=== PATIENT | male | born 1985 | race Caucasian/White ===

== ENCOUNTER 2021-12-27 17:24 | Emergency (ER) | payer OTHER ==
[~2021-12-27] VITALS: Ht 180.3 cm; Wt 81.6 kg
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
--- NOTE | 2021-12-27 17:35 | NUR ---
DR ORTIZ AT BEDSIDE FOR EVAL
[2021-12-27] MEDS ORDERED: FLUORESCEIN SODIUM OPHTH 1 EA STRIP ONE (17:39)
[2021-12-27] MEDS ORDERED: OFLO5DRO6 RIGHTEYE (17:49)
[2021-12-27 18:02] VITALS: BP 121/65
--- NOTE | 2021-12-27 18:02 | NUR ---
Patient discharged to home in stable condition. Written and verbal after care instructions given. Patient verbalizes understanding of instruction.
== END 2021-12-27 18:03 | disposition home or self-care (01) ==
LOC: ER 17:30
DX: T15.01XA Foreign body in cornea, right eye, initial encounter (principal); Z88.0 Allergy status to penicillin; Z60.2 Problems related to living alone; W22.8XXA Striking against or struck by other objects, initial encounter; Y93.89 Activity, other specified; Y92.89 Other specified places as the place of occurrence of the external cause; Y99.0 Civilian activity done for income or pay